=== PATIENT | male | born 1975 | race Caucasian/White ===

== ENCOUNTER 2016-10-30 00:19 | Emergency (ER) | payer BC ==
[~2016-10-30] VITALS: Ht 177.8 cm; Wt 114.3 kg
[2016-10-30] MEDS ORDERED: PAROXETINE HCL20 MG PO (00:37)
[2016-10-30] MEDS ORDERED: AMLODIPINE BESYL5 MG PO (00:37)
[2016-10-30] MEDS ORDERED: LOSARTAN POTASS50 MG PO (00:38)
[2016-10-30] MEDS ORDERED: ADVAIR 250-501 EACH INH (00:39)
== END 2016-10-30 00:57 | disposition home or self-care (01) ==
LOC: ED 00:19
DX: Z53.21 Procedure and treatment not carried out due to patient leaving prior to being seen by health care provider (principal)

== ENCOUNTER 2017-03-25 23:58 | Emergency (ER) | payer BC ==
[~2017-03-25] VITALS: Ht 177.8 cm; Wt 113.4 kg
[~2017-03-25 23:58] MED LIST: ADVAIR 250-501 EACH INH; AMLODIPINE BESYL5 MG PO; LOSARTAN POTASS50 MG PO; PAROXETINE HCL20 MG PO
[2017-03-26] MEDS ORDERED: LEXAPRO10 MG PO (00:15)
[2017-03-26] MEDS ORDERED: LOSARTAN-HCTZ1 EACH PO (00:16)
[2017-03-26] MEDS ORDERED: STRATTERA80 MG PO (00:16)
[2017-03-26] MEDS ORDERED: PANTOPRAZOLE SO40 MG PO (00:17)
[2017-03-26] MEDS ORDERED: VENTOLIN HFA18 GM INH (00:18)
[2017-03-26] MEDS ORDERED: MELOXICAM7.5 MG PO (00:18)
[2017-03-26] MEDS ORDERED: ZYRTEC10 MG PO (00:19)
== END 2017-03-26 01:54 | disposition home or self-care (01) ==
LOC: ED 23:58
DX: A08.4 Viral intestinal infection, unspecified (principal); I10 Essential (primary) hypertension; K21.9 Gastro-esophageal reflux disease without esophagitis; Z79.899 Other long term (current) drug therapy
CPT/HCPCS: 80053; 81001; 83690; 85025; 96361; 96374; 96375; 99283; J2405; J7030

== ENCOUNTER 2019-12-18 20:15 | Emergency (ER) | payer BC ==
[~2019-12-18] VITALS: Ht 177.8 cm; Wt 113.4 kg
--- OUTSIDE RECORDS SUMMARY | ~2019-12-18 | XMS | Clinical Summary ---
Demographics + + + | Address | [address] | | | [place] [address] | + + + | Home Phone | | + + + | Preferred Language | Unknown | + + + | Marital Status | | + + + | Druze Affiliation | Unknown | + + + | Race | White | + + + | Ethnic Group | Not or | + + + Author + + + | Author | [facility] | | | and [place] | + + + | Organization | [facility] | | | and [place] | + + + | Address | Unknown | + + + | Phone | Unavailable | + + + Support + + +---------+ + | Name | Relationship | Address | Phone | + + +---------+ + | Holly Avila | ECON | Unknown | | + + +---------+ + Care Team Providers + +------+ + | Care Garage Door Installer Name | Role | Phone | + +------+ + | Dimitrios Still DO | PCP | | + +------+ + Allergies Not on File Medications Not on file Active Problems Not on file Family History + + +------+ + | Medical History | Relation | Name | Comments | + + +------+ + | Alzheimer's disease | Other | | Grandfather | + + +------+ + | Hypertension | Other | | Grandmother | + + +------+ + | Stroke | Other | | Grandmother | + + +------+ + | Multiple sclerosis | Sister | | | + + +------+ + + +------+ + + | Relation | Name | Status | Comments | + +------+ + + | Other | | | | + +------+ + + | Sister | | | MS | | | | (Age | | | | | 43) | | + +------+ + + | Sister | | | | + +------+ + + Social History + +-------+ +--------+------+ | Tobacco Use | Types | Packs/Day | Years | Date | | | | | Used | | + +-------+ +--------+------+ | Never Smoker | | | | | + +-------+ +--------+------+ + + + | Sex Assigned at | Date Recorded | | | | + + + | Not on file | | + + + Last Filed Vital Signs Not on file Plan of Treatment + + +-------+ + | Health Maintenance | Due Date | Last | Comments | | | | Done | | + + +-------+ + | Vaccine: | | | | | Dtap/Tdap/Td (1 - | 7 | | | | Tdap) | | | | + + +-------+ + | Vaccine: Influenza | | | | | (#1) | 0 | | | + + +-------+ + Results Not on filefrom Last 3 Months"
--- OUTSIDE RECORDS SUMMARY | ~2019-12-18 | XMS | Encounter Summary ---
Demographics + + + | Address | [address] | | | [place] [address] | + + + | Home Phone | | + + + | Preferred Language | Unknown | + + + | Marital Status | | + + + | Mormon Affiliation | Unknown | + + + | Race | White | + + + | Ethnic Group | Not or | + + + Author + + + | Author | [facility] | | | and [place] | + + + | Organization | [facility] | | | and [place] | + + + | Address | Unknown | + + + | Phone | Unavailable | + + + Support + + +---------+ + | Name | Relationship | Address | Phone | + + +---------+ + | Holly Austin | ECON | Unknown | | + + +---------+ + Care Team Providers + +------+ + | Care Dip Brazier Name | Role | Phone | + +------+ + | Dimitrios Still DO | PCP | | + +------+ + Encounter Details +--------+ + + + + | Date | Type | Department | Care Team | Description | +--------+ + + + + | 06/20/ | Orders Only | [facility] | Talat Scherer, | | | 2014 | | CARDIOLOGY SARTHAK | MD [address] | | | | | [address] | [place] [address] | | | | | [address] | [phone] | | | | | [place], [place] | | | | | | [address] | | | | | | [phone] | | | +--------+ + + + + Social History + +-------+ +--------+------+ | Tobacco Use | Types | Packs/Day | Years | Date | | | | | Used | | + +-------+ +--------+------+ | Never Assessed | | | | | + +-------+ +--------+------+ + + + | Sex Assigned at | Date Recorded | | | | + + + | Not on file | | + + + documented as of this encounter Plan of Treatment Not on filedocumented as of this encounter Procedures + +--------+ + + + | Procedure Name | Priori | Date/Time | Associated Diagnosis | Comments | | | ty | | | | + +--------+ + + + | NM MYOCARDIAL | Routin | 06/20/2014 | | Results for this | | PERFUSION MULT SPECT | e | 11:50 AM | | procedure are in the | | | | PST | | results section. | + +--------+ + + + documented in this encounter Results NM Myocardial Perfusion Mult SPECT (06/20/2014 11:50 AM PST) + + | Specimen | + + | | + + + + + | Narrative | Performed At | + + + | [facility] Nuclear Lexiscan Stress Test | | | INDICATION FOR TEST: Palpitations, Syncope RISK FACTORS: | | | hypertension, stress PROCEDURE: 10.2 mCi of Tc-99m Myoview was | | | given intravenously for rest images. The patient received 0.4 mg of | | | Lexiscan intravenously. At 35 seconds 31.7 mCi of Tc-99m Myoview was | | | given intravenously for stress images. Symptoms shortness of breath, | | | dizziness . Effective Dose Equivalent: 14.4 mSv. REST DATA: Heart | | | rate 81 bpm. BP: 154/101. ECG: Normal sinus rhythm rate 91. Poor R | | | wave progression. STRESS DATA: Peak heart rate 120 , Peak BP: | | | 157/91. ECG: No arrhythmias. No ischemia. EJECTION FRACTION: Rest | | | EF: 52% Stress EF: 57% IMAGING: The quality images are good. No | | | artifacts are seen. Images show no significant rest and stress | | | perfusion abnormality. Gated images show normal wall motion and normal | | | systolic thickening. Post stress ejection fraction 57%. | | | IMPRESSIONS: Uneventful chemical stress infusion No significant rest | | | stress perfusion abnormality Normal LV systolic function No | | | comparison studies available Talat Scherer MD, FACC, FACP, | | | FASNC | | | 4:53 PM | | + + + + + | Procedure Note | + + | Allan Lock Conversion - 12/17/2018 11:42 PM [facility] | Lexiscan Stress Test INDICATION FOR TEST: Palpitations, Syncope RISK FACTORS: | | hypertension, stress PROCEDURE: 10.2 mCi of Tc-99m Myoview was given intravenously for | | rest images. The patient received 0.4 mg of Lexiscan intravenously. At 35 seconds 31.7 | | mCi of Tc-99m Myoview was given intravenously for stress images. Symptoms shortness of | | breath, dizziness . Effective Dose Equivalent: 14.4 mSv. REST DATA: Heart rate 81 bpm. | | BP: 154/101. ECG: Normal sinus rhythm rate 91. Poor R wave progression. STRESS DATA: | | Peak heart rate 120 , Peak BP: 157/91. ECG: No arrhythmias. No ischemia. EJECTION | | FRACTION: Rest EF: 52% Stress EF: 57% IMAGING:The quality images are good. No artifacts | | are seen. Images show no significant rest and stress perfusion abnormality. Gated images | | show normal wall motion and normal systolic thickening. Post stress ejection fraction | | 57%. IMPRESSIONS:Uneventful chemical stress infusionNo significant rest stress perfusion | | abnormalityNormal LV systolic functionNo comparison studies available Talat Scherer, | | ROSI PHILIP, SHANON, FELICE | | | |EJECTION FRACTION: Rest EF: 52% Stress EF: 57% | | | |IMAGING: | |The quality images are good. No artifacts are seen. Images show no significant rest and str ess perfusion abnormality. Gated images show normal wall motion and normal systolic thickeni ng. Post stress ejection fraction 57%. | | | |IMPRESSIONS: | |Uneventful chemical stress infusion | |No significant rest stress perfusion abnormality | |Normal LV systolic function | |No comparison studies available | | | |Talat Scherer MD, ROSI, SHANON, FELICE | | | | | + + documented in this encounter Visit Diagnoses Not on filedocumented in this encounter"
--- OUTSIDE RECORDS SUMMARY | ~2019-12-18 | XMS | Encounter Summary ---
Demographics + + + | Address | [address] | | | [place] [address] | + + + | Home Phone | | + + + | Preferred Language | Unknown | + + + | Marital Status | | + + + | Hoahaoism Affiliation | Unknown | + + + | Race | White | + + + | Ethnic Group | Not or | + + + Author + + + | Author | [facility] | | | and [place] | + + + | Organization | [facility] | | | [...] Team Providers + +------+ + | Care Straightening Machine Feeder Name | Role | Phone | + +------+ + PCP | Unavailable | + +------+ + Encounter Details +--------+ + + + + | Date | Type | Department | Care Team | Description | +--------+ + + + + | 04/09/ | [facility] | [facility] | Conversion | Disturbance of skin | | 2011 | Encounter | [facility] | Transaction, | sensation; Weakness | | | | [address] | Provider Unknown | | | | | [place] | [phone] | | | | | [address] | | | | | | [phone] | | | +--------+ + + + [...] | + +--------+ + + + | MRI CERVICAL SPINE W | Routin | 04/09/2012 | | Results for this | | WO CONTRAST | e | 6:43 PM | | procedure are in the | | | | PST | | results section. | + +--------+ + + + documented in this encounter Results MRI Cervical Spine w wo Contrast (04/09/2012 6:43 PM PST) + + | Specimen | + + | | + + + + + | Narrative | Performed At | + + + | [facility] CERVICAL SPINE W WO CONTRAST 04/09/2012 5:11 PM | | | HISTORY: 36 years. Male. Disturbance of skin sensation. | | | Weakness. ICD-9 code 782.0, 780.79. TECHNIQUE: Imaging was | | | performed on a 1.5 [place] MRI system. Multiplanar sequences were | | | acquired according to a standard department protocol with and without | | | contrast. Contrast: MultiHance. Dose: 21 mL. A single dose of | | | contrast was used for this study as well as a concurrent MRI | | | examination of the brain. COMPARISON: None. FINDINGS: | | | Imaging in the sagittal plane was performed from the posterior fossa | | | through T3-4. The vertebral bodies are normal in height. Normal | | | alignment is noted at all levels. Normal bone marrow signal | | | intensity is seen on all sequences. Prior surgical changes: None. | | | The visualized structures in the posterior fossa demonstrate | | | normal morphology and signal intensity. The flow voids of the | | | vertebral and basilar arteries are normal. The clivus is normal. | | | The pituitary is normal. The paraspinal soft tissues are normal. | | | The structures in the nasopharynx and neck appear grossly normal | | | with no mass or adenopathy seen. The thyroid appears normal. The | | | anterior longitudinal ligament, posterior longitudinal ligament, | | | ligamentum flavum and intraspinous ligaments are normal. The | | | foramen magnum is widely patent. There is no evidence of an | | | Arnold-Chiari malformation. The cervical and visualized upper | | | thoracic cord is normal in signal intensity and morphology. No | | | syrinx or hydromyelia is noted. Following contrast administration | | | no abnormal enhancement is seen within the vertebral bodies, disk | | | spaces, epidural space, spinal cord or paraspinal soft tissues. | | | The facet joints are normal at all observed levels. Occipital | | | atlantal joints: Normal. Atlantoaxial joints: Normal. C2-3: | | | The disk is normal in height and signal intensity and has a normal | | | posterior contour. The canal and neuroforamina are patent. C3-4: | | | The disk is normal in height and signal intensity and has a normal | | | posterior contour. The canal and neuroforamina are patent. C4-5: | | | The disk is normal in height and signal intensity. A small central | | | disk bulge is noted which abuts the anterior cord without causing | | | indentation. The canal and neural foramina are otherwise widely | | | patent. C5-6: Mild disk space narrowing. The posterior contour | | | of the disk shows a 1.6-mm left central disk protrusion which indents | | | the thecal sac and slightly indents the anterior cord. The canal and | | | neural foramina are otherwise widely patent patent. C6-7: The | | | disk is normal in height. A 3.4 mm central disk protrusion is seen | | | which indents the thecal sac and abuts the anterior cord causing a | | | minimal degree of indentation. The canal and neural foramina are | | | otherwise widely patent. C7-T1: The disk is normal in height and | | | signal intensity and has a normal posterior contour. The canal and | | | neuroforamina are patent. At T1-2 and below the disks are normal | | | in height and signal intensity and have normal posterior contours. | | | The canal and neuroforamina are patent at these levels. | | | IMPRESSION: 1. Central disk protrusion at C6-7 slightly indents the | | | anterior cord without causing canal stenosis. 2. Left central disk | | | protrusion at C5-6 slightly indents the anterior left side of the | | | cord without causing canal stenosis. 3. Central disk bulge at C4-5 | | | abuts but does not indent the cord. 4. Neuroforamina are widely | | | patent at all levels. 5. Cervical spinal cord is normal in signal | | | intensity. Electronically signed by Cesar Zimmerman DO on | | | 04/10/2012 9:02 AM | | + + + + + | Procedure Note | + + | Ashvin, Rad Conversion - 12/19/2018 4:18 AM PDT [facility] W WO | | [place]59/13/2012 5:11 PM HISTORY:36 years. Male. Disturbance of skin sensation. | | Weakness. ICD-9 code 782.0, 780.79. TECHNIQUE:Imaging was performed on a 1.5 [place] MRI | | system. Multiplanar sequences were acquired according to a standard department protocol | | with and without contrast.Contrast: MultiHance. Dose: 21 mL. A single dose of | | contrast was used for this study as well as a concurrent MRI examination of the brain. | | COMPARISON:None. FINDINGS:Imaging in the sagittal plane was performed from the posterior | | fossa through T3-4. The vertebral bodies are normal in height. Normal alignment is | | noted at all levels. Normal bone marrow signal intensity is seen on all sequences. | | Prior surgical changes: None. The visualized structures in the posterior fossa | | demonstrate normal morphology and signal intensity. The flow voids of the vertebral and | | basilar arteries are normal. The clivus is normal. The pituitary is normal. The | | paraspinal soft tissues are normal. The structures in the nasopharynx and neck appear | | grossly normal with no mass or adenopathy seen. The thyroid appears normal. The | | anterior longitudinal ligament, posterior longitudinal ligament, ligamentum flavum and | | intraspinous ligaments are normal. The foramen magnum is widely patent. There is no | | evidence of an Arnold-Chiari malformation. The cervical and visualized upper thoracic | | cord is normal in signal intensity and morphology. No syrinx or hydromyelia is noted. | | Following contrast administration no abnormal enhancement is seen within the vertebral | | bodies, disk spaces, epidural space, spinal cord or paraspinal soft tissues. The facet | | joints are normal at all observed levels. Occipital atlantal joints: Normal. | | Atlantoaxial joints: Normal. C2-3: The disk is normal in height and signal intensity and | | has a normal posterior contour. The canal and neuroforamina are patent. C3-4: The disk | | is normal in height and signal intensity and has a normal posterior contour. The canal | | and neuroforamina are patent. C4-5: The disk is normal in height and signal intensity. | | A small central disk bulge is noted which abuts the anterior cord without causing | | indentation. The canal and neural foramina are otherwise widely patent. C5-6: Mild disk | | space narrowing. The posterior contour of the disk shows a 1.6-mm left central disk | | protrusion which indents the thecal sac and slightly indents the anterior cord. The | | canal and neural foramina are otherwise widely patent patent. C6-7: The disk is normal | | in height. A 3.4 mm central disk protrusion is seen which indents the thecal sac and | | abuts the anterior cord causing a minimal degree of indentation. The canal and neural | | foramina are otherwise widely patent. C7-T1: The disk is normal in height and signal | | intensity and has a normal posterior contour. The canal and neuroforamina are patent. | | At T1-2 and below the disks are normal in height and signal intensity and have normal | | posterior contours. The canal and neuroforamina are patent at these levels. | | IMPRESSION:1. Central disk protrusion at C6-7 slightly indents the anterior cord | | without causing canal stenosis.2. Left central disk protrusion at C5-6 slightly indents | | the anterior left side of the cord without causing canal stenosis.3. Central disk | | bulge at C4-5 abuts but does not indent the cord.4. Neuroforamina are widely patent at | | all levels.5. Cervical spinal cord is normal in signal intensity. | |C4-5: The disk is normal in height and signal intensity. A small central disk bulge is not ed which abuts the anterior cord without causing indentation. The canal and neural foramina are otherwise widely patent. | | | |C5-6: Mild disk space narrowing. The posterior contour of the disk shows a 1.6-mm left shaun tral disk protrusion which indents the thecal sac and slightly indents the anterior cord. T he canal and neural foramina are otherwise widely patent patent. | | | |C6-7: The disk is normal in height. A 3.4 mm central disk protrusion is seen which indents the thecal sac and abuts the anterior cord causing a minimal degree of indentation. The ca nal and neural foramina are otherwise widely patent. | | | |C7-T1: The disk is normal in height and signal intensity and has a normal posterior contour . The canal and neuroforamina are patent. | | | |At T1-2 and below the disks are normal in height and signal intensity and have normal poste rior contours. The canal and neuroforamina are patent at these levels. | | | |IMPRESSION: | |1. Central disk protrusion at C6-7 slightly indents the anterior cord without causing becky l stenosis. | |2. Left central disk protrusion at C5-6 slightly indents the anterior left side of the cor d without causing canal stenosis. | |3. Central disk bulge at C4-5 abuts but does not indent the cord. | |4. Neuroforamina are widely patent at all levels. | |5. Cervical spinal cord is normal in signal intensity. | | | | | + + documented in this encounter Visit Diagnoses + + | Diagnosis | + + | Disturbance of skin sensation | + + | Weakness Other malaise and fatigue | + + documented in this encounter"
--- OUTSIDE RECORDS SUMMARY | ~2019-12-18 | XMS | Encounter Summary ---
Demographics + + + | Address | [address] | | | [place] [address] | + + + | Home Phone | | + + + | Preferred Language | Unknown | + + + | Marital Status | | + + + | Jew Affiliation | Unknown | + + + | Race | White | + + + | Ethnic Group | Not or | + + + Author + + + | Author | [facility] | | | and [place] | + + + | Organization | [facility] | | | and [place] | + + + | Address | Unknown | + + + | Phone | Unavailable | + + + Support + + +---------+ + | Name | Relationship | Address | Phone | + + +---------+ + | Holly Cumminshel | ECON | Unknown | | + + +---------+ + Care Team Providers + +------+ + | Care Water Commissioner Name | Role | Phone | + +------+ + | Dimitrios Still DO | PCP | | + +------+ + Encounter Details +--------+ + + + + | Date | Type | Department | Care Team | Description | +--------+ + + + + | 06/20/ | Orders Only | [facility] | Talat Scherer, | | | 2015 | | CARDIOLOGY [place] | [address] | | | | | ECHO [address] | [place] [address] | | | | | [place], [place] | [phone] | | | | | [address] | | | | | | [phone] | | | +--------+ + + + [...] | + +--------+ + + + | ECHO COMPLETE | Routin | 06/20/2014 | | Results for this | | | e | 9:27 AM | | procedure are in the | | | | PST | | results section. | + +--------+ + + + documented in this encounter Results ECHO Complete (06/20/2014 9:27 AM PST) + + | Specimen | + + | | + + + + + | Impressions | Performed At | + + + | 1. Overall left ventricular systolic function is normal with, an EF | | | between 60 - 65 %. | | + + + + + + | Narrative | Performed At | + + + | Patient Name: GILLES AVILA Date of : 1975 | | | Performing Physician: Talat Scherer MD, | | | FACC, FACP, FASNC | | | | | | INDICATIONS Palpitations, dizziness CONCLUSIONS | | | 1. Overall left ventricular systolic function is normal | | | with, an EF between 60 - 65 %. FINDINGS -------- ECG rhythm: | | | Sinus rhythm. Study: A 2-dimensional transthoracic echocardiogram | | | with m-mode, spectral and color flow Doppler was perfomed. Study: | | | This was a technically adequate study. Left Ventricle: Overall left | | | ventricular systolic function is normal with, an EF between 60 - 65 %. | | | Left Ventricle: The left ventricle cavity size is normal. Left | | | Ventricle: Left ventricular wall thickness is normal. Left Ventricle: | | | No regional wall motion abnormalities. Left Ventricle: The diastolic | | | filling pattern is normal for the age of the patient. Right | | | Ventricle: The right ventricle is normal in size and function. Left | | | Atrium: The left atrium is mildly enlarged. Right Atrium: The right | | | atrium is mildly enlarged Right Atrium: , and the RA measures 5.3cm. | | | Aortic Valve: The aortic valve is trileaflet and appears structurally | | | normal. Mitral Valve: The mitral valve is normal. Mitral Valve: | | | There is trivial mitral regurgitation. Tricuspid Valve: The tricuspid | | | valve was not well visualized. Tricuspid Valve: Pulmonary artery | | | systolic pressure could not be assessed due to the absence of adequate | | | TR jet. Pulmonic Valve: The pulmonic valve is normal. Pulmonic | | | Valve: Trace pulmonic regurgitation. Pericardium: There is no | | | pericardial effusion. IVC/Hepatic Veins: The IVC is normal size | | | (1.5-2.5cm) and collapses >50% with sniff, consistent with central | | | venous pressures of 5-10mmHg. Aorta: The aortic root, ascending aorta | | | and aortic arch are normal. Mass: No mass visualized Thrombus: No | | | clot visualized Thrombus: No vegetation visualized. Septum: No ASD | | | observed. Septum: No VSD observed. MEASUREMENTS | | | Ao asc: 3.31 cm IVC: 1.95 cm LA Major: 5.39 cm EDV(Teich): | | | 135.61 ml IVSd: 0.99 cm LVIDd: 5.30 cm LVPWd: 0.88 cm | | | LVOT Area: 3.48 cm2 LVOT Diam: 2.10 cm %FS: 37.93 % | | | EF(Teich): 67.64 % ESV(Teich): 43.88 ml LVIDs: 3.29 cm | | | SV(Teich): 91.73 ml RA Major: 5.26 cm RVIDd: 2.88 cm LVEF | | | MOD A2C: 59.96 % SV MOD A2C: 69.39 ml LVEF MOD A4C: 70.77 % | | | SV MOD A4C: 100.67 ml EF Biplane: 66.76 % LVEDV MOD BP: | | | 133.36 ml LVESV MOD BP: 44.32 ml LVEDV MOD A2C: 115.72 ml | | | LVLd A2C: 8.69 cm LVEDV MOD A4C: 142.24 ml LVLd A4C: 9.47 | | | cm LVESV MOD A2C: 46.32 ml LVLs A2C: 7.22 cm LVESV MOD A4C: | | | 41.57 ml LVLs A4C: 7.52 cm LAESV(A-L): 73.39 ml LAESV | | | Index (A-L): 32.19 ml/m2 LAAs A2C: 18.44 cm2 LAESV A-L A2C: | | | 56.11 ml LALs A2C: 5.14 cm LAAs A4C: 24.12 cm2 LAESV A-L | | | A4C: 87.73 ml LALs A4C: 5.63 cm Ao Diam: 3.39 cm LA Diam: | | | 4.37 cm LA/Ao: 1.28 AV maxP.14 mmHg AV meanP.31 | | | mmHg AV Vmax: 1.23 m/s AV Vmean: 0.85 m/s AV VTI: 25.22 | | | cm KIERAN Vmax: 2.58 cm2 KIERAN (VTI): 2.51 cm2 LVOT maxP.39 | | | mmHg LVOT meanP.76 mmHg LVSI Dopp: 27.85 ml/m2 LVSV | | | Dopp: 63.51 ml LVOT Vmax: 0.92 m/s LVOT Vmean: 0.61 m/s | | | LVOT VTI: 18.23 cm IVRT: 93.42 ms MV A Alfredo: 0.83 m/s MV | | | Dec Coal: 4.89 m/s2 MV DecT: 182.19 ms MV E Alfredo: 0.88 m/s | | | MV E/A Ratio: 1.09 MV PHT: 52.83 ms MVA By PHT: 4.16 cm2 | | | Septal e': 0.10 m/s Septal E/e': 8.13 Lateral e': 0.14 m/s | | | Lateral E/e': 6.14 RAP: 5 mmHg Chemical Treatment Plant Technician: [id number] | | | Authenticated by: Talat Scherer MD, FAC, FACP, [facility] Report | | | Date/Time: 06-22-2014 16:30:21 | | + + + + + | Procedure Note | + + | Allan Lock Conversion - 12/17/2018 11:42 PM PDT Patient Name: Jorge Luis AVILA of | | : 1975 Performing Physician: Talat Scherer MD, FACC, | | FACP, | | FASNC INDICATIONS--------- | | --Palpitations, dizziness CONCLUSIONS 1. Overall left ventricular systolic | | function is normal with, an EF between 60 - 65 %. FINDINGS--------ECG rhythm: Sinus | | rhythm.Study: A 2-dimensional transthoracic echocardiogram with m-mode, spectral and | | color flow Doppler was perfomed.Study: This was a technically adequate study.Left | | Ventricle: Overall left ventricular systolic function is normal with, an EF between 60 - | | 65 %.Left Ventricle: The left ventricle cavity size is normal.Left Ventricle: Left | | ventricular wall thickness is normal.Left Ventricle: No regional wall motion | | abnormalities.Left Ventricle: The diastolic filling pattern is normal for the age of the | | patient.Right Ventricle: The right ventricle is normal in size and function.Left | | Atrium: The left atrium is mildly enlarged.Right Atrium: The right atrium is mildly | | enlargedRight Atrium: , and the RA measures 5.3cm.Aortic Valve: The aortic valve is | | trileaflet and appears structurally normal.Mitral Valve: The mitral valve is | | normal.Mitral Valve: There is trivial mitral regurgitation.Tricuspid Valve: The | | tricuspid valve was not well visualized.Tricuspid Valve: Pulmonary artery systolic | | pressure could not be assessed due to the absence of adequate TR jet.Pulmonic Valve: The | | pulmonic valve is normal.Pulmonic Valve: Trace pulmonic regurgitation.Pericardium: | | There is no pericardial effusion.IVC/Hepatic Veins: The IVC is normal size (1.5-2.5cm) | | and collapses >50% with sniff, consistent with central venous pressures of | | 5-10mmHg.Aorta: The aortic root, ascending aorta and aortic arch are normal.Mass: No | | mass visualizedThrombus: No clot visualizedThrombus: No vegetation visualized.Septum: No | | ASD observed.Septum: No VSD observed. MEASUREMENTS Ao asc: 3.31 cmIVC: | | 1.95 cmLA Major: 5.39 cmEDV(Teich): 135.61 mlIVSd: 0.99 cmLVIDd: 5.30 cmLVPWd: | | 0.88 cmLVOT Area: 3.48 [id number] Diam: 2.10 cm%FS: 37.93 %EF(Teich): 67.64 | | %ESV(Teich): 43.88 mlLVIDs: 3.29 cmSV(Teich): 91.73 mlRA Major: 5.26 cmRVIDd: | | 2.88 cmLVEF MOD A2C: 59.96 %SV MOD A2C: 69.39 mlLVEF MOD A4C: 70.77 %SV MOD A4C: | | 100.67 mlEF Biplane: 66.76 %LVEDV MOD BP: 133.36 mlLVESV MOD BP: 44.32 mlLVEDV | | MOD A2C: 115.72 mlLVLd A2C: 8.69 cmLVEDV MOD A4C: 142.24 mlLVLd A4C: 9.47 | | cmLVESV MOD A2C: 46.32 mlLVLs A2C: 7.22 cmLVESV MOD A4C: 41.57 mlLVLs A4C: 7.52 | | cmLAESV(A-L): 73.39 mlLAESV Index (A-L): 32.19 ml/m2LAAs A2C: 18.44 [id number] A-L | | A2C: 56.11 mlLALs A2C: 5.14 cmLAAs A4C: 24.12 [id number] A-L A4C: 87.73 mlLALs | | A4C: 5.63 cmAo Diam: 3.39 cmLA Diam: 4.37 cmLA/Ao: 1.28AV maxP.14 mmHgAV | | meanP.31 mmHgAV Vmax: 1.23 m/Jesse Vmean: 0.85 m/Jesse VTI: 25.22 cmAVA Vmax: | | 2.58 cm2AVA (VTI): 2.51 [id number] maxP.39 mmHgLVOT meanP.76 mmHgLVSI Dopp: | | 27.85 ml/m2LVSV Dopp: 63.51 mlLVOT Vmax: 0.92 m/sLVOT Vmean: 0.61 m/sLVOT VTI: | | 18.23 cmIVRT: 93.42 msMV A Alfredo: 0.83 m/sMV Dec Coal: 4.89 m/s2MV DecT: 182.19 | | msMV E Alfredo: 0.88 m/sMV E/A Ratio: 1.09MV PHT: 52.83 msMVA By PHT: 4.16 [id number] | | e': 0.10 m/sSeptal E/e': 8.13Lateral e': 0.14 m/sLateral E/e': 6.14RAP: 5 | | mmHg Chemical Treatment Plant Technician: DHAuthenticated by: Talat Scherer MD, FACC, FACP, FASNCReport | | Date/Time: 06-22-2014 16:30:21 IMPRESSION: 1. Overall left ventricular systolic function | | is normal with, an EF between 60 - 65 %. | |Septum: No VSD observed. | | | |MEASUREMENTS | | | |Ao asc: 3.31 cm | |IVC: 1.95 cm | |LA Major: 5.39 cm | |EDV(Teich): 135.61 ml | |IVSd: 0.99 cm | |LVIDd: 5.30 cm | |LVPWd: 0.88 cm | |LVOT Area: 3.48 cm2 | |LVOT Diam: 2.10 cm | |%FS: 37.93 % | |EF(Teich): 67.64 % | |ESV(Teich): 43.88 ml | |LVIDs: 3.29 cm | |SV(Teich): 91.73 ml | |RA Major: 5.26 cm | |RVIDd: 2.88 cm | |LVEF MOD A2C: 59.96 % | |SV MOD A2C: 69.39 ml | |LVEF MOD A4C: 70.77 % | |SV MOD A4C: 100.67 ml | |EF Biplane: 66.76 % | |LVEDV MOD BP: 133.36 ml | |LVESV MOD BP: 44.32 ml | |LVEDV MOD A2C: 115.72 ml | |LVLd A2C: 8.69 cm | |LVEDV MOD A4C: 142.24 ml | |LVLd A4C: 9.47 cm | |LVESV MOD A2C: 46.32 ml | |LVLs A2C: 7.22 cm | |LVESV MOD A4C: 41.57 ml | |LVLs A4C: 7.52 cm | |LAESV(A-L): 73.39 ml | |LAESV Index (A-L): 32.19 ml/m2 | |LAAs A2C: 18.44 cm2 | |LAESV A-L A2C: 56.11 ml | |LALs A2C: 5.14 cm | |LAAs A4C: 24.12 cm2 | |LAESV A-L A4C: 87.73 ml | |LALs A4C: 5.63 cm | |Ao Diam: 3.39 cm | |LA Diam: 4.37 cm | |LA/Ao: 1.28 | |AV maxP.14 mmHg | |AV meanP.31 mmHg | |AV Vmax: 1.23 m/s | |AV Vmean: 0.85 m/s | |AV VTI: 25.22 cm | |KIERAN Vmax: 2.58 cm2 | |KIERAN (VTI): 2.51 cm2 | |LVOT maxP.39 mmHg | |LVOT meanP.76 mmHg | |LVSI Dopp: 27.85 ml/m2 | |LVSV Dopp: 63.51 ml | |LVOT Vmax: 0.92 m/s | |LVOT Vmean: 0.61 m/s | |LVOT VTI: 18.23 cm | |IVRT: 93.42 ms | |MV A Alfredo: 0.83 m/s | |MV Dec Coal: 4.89 m/s2 | |MV DecT: 182.19 ms | |MV E Alfredo: 0.88 m/s | |MV E/A Ratio: 1.09 | |MV PHT: 52.83 ms | |MVA By PHT: 4.16 cm2 | |Septal e': 0.10 m/s | |Septal E/e': 8.13 | |Lateral e': 0.14 m/s | |Lateral E/e': 6.14 | |RAP: 5 mmHg | | | |Chemical Treatment Plant Technician: | |Authenticated by: Talat Scherer MD, FACC, FACP, [facility] | |Report Date/Time: 06-22-2014 16:30:21 | | | |IMPRESSION: | |1. Overall left ventricular systolic function is normal with, an EF between 60 - 65 %. | + + documented in this encounter Visit Diagnoses Not on filedocumented in this encounter"
--- OUTSIDE RECORDS SUMMARY | ~2019-12-18 | XMS | Encounter Summary ---
Demographics + + + | Address | [address] | | | [place] [address] | + + + | Home Phone | | + + + | Preferred Language | Unknown | + + + | Marital Status | | + + + | Advent Affiliation | Unknown | + + + | Race | White | + + + | Ethnic Group | Not or | + + + Author + + + | Author | [facility] | | | and [place] | + + + | Organization | [facility] | | | and [...] Team Providers + +------+ + | Care Chief Ii Dispatcher Name | Role | Phone | + +------+ + PCP | Unavailable | + +------+ + Encounter Details +--------+ + + + + | Date | Type | Department | Care Team | Description | +--------+ + + + + | 04/09/ | [facility] | [facility] | Conversion | Disturbance of skin | | 2011 | Encounter | [facility] | Transaction, | sensation | | | | [address] | Provider Unknown | | | | | [place] | [phone] | | | | | [address] | | | | | | [phone] | | | +--------+ + + + [...] + +--------+ + + + | MRI BRAIN W WO | Routin | 04/09/2012 | | Results for this | | CONTRAST | e | 6:42 PM | | procedure are in the | | | | PST | | results section. | + +--------+ + + + documented in this encounter Results MRI Brain w wo Contrast (04/09/2012 6:42 PM PST) + + | Specimen | + + | | + + + + + | Narrative | Performed At | + + + | [facility] MRI BRAIN W WO CONTRAST 04/09/2012 5:11 PM | | | HISTORY: 36 years. Male. Disturbance of skin sensation. | | | Weakness. ICD-9 code 782.0, 780.79. TECHNIQUE: Imaging was | | | performed on a 1.5 [place] MRI system. Multiplanar sequences were | | | acquired according to a standard department protocol with and without | | | contrast. Contrast: MultiHance. Dose: 21 mL. COMPARISON: None. | | | FINDINGS: Two small cysts are noted one each along the superior | | | aspects of the cerebellar hemispheres on the axial images these | | | measure 1.7 x 5.5 mm on the right and 3.8 x 6.5 mm on the left. 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 Chronic | | | lacunar-type infarcts are felt to be less likely but would remain | | | within the differential diagnosis. The DWI sequence shows no | | | evidence of acute ischemia or infarct. The T2* GRE sequence does not | | | show low signal material to suggest microhemorrhage or | | | calcification within the brain parenchyma. Following contrast | | | administration, no abnormal enhancement is seen within the brain | | | parenchyma, leptomeninges or dura. No lesions are seen in the | | | supratentorial or infratentorial white matter to suggest multiple | | | sclerosis. The brain parenchyma otherwise demonstrates normal | | | morphology and signal intensity on all sequences. The ventricles, | | | cisterns and sulci are normal in size and configuration. No extraaxial | | | fluid collections are noted. The midline structures including the | | | corpus callosum, porfirio, cerebellar vermis, pineal gland and pituitary | | | are normal. No masses are seen in the region of the | | | cerebellopontine angles or internal auditory canals. The orbits and | | | their contents are normal. The paranasal sinuses are well aerated. | | | No air-fluid levels or mucosal thickening is noted. No fluid seen | | | in the mastoids. The osseous structures of the calvaria and upper | | | cervical spine demonstrate normal bone marrow signal intensity. The | | | soft tissues of the oropharynx and upper neck appear normal on the | | | sagittal sequences. The intracranial arteries demonstrate normal | | | flow voids on the T2 sequence. No large aneurysm is noted. The | | | dural venous sinuses also demonstrate normal flow-voids. | | | IMPRESSION: 1. No acute intracranial findings. 2. Two tiny cysts | | | seen in the superior margins of the cerebellar hemispheres, one on | | | the left and one on the right. These show no evidence of enhancement | | | or surrounding gliosis. 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 They are unlikely to be of any acute clinical concern. 3. | | | No evidence of multiple sclerosis. | | + + + + + | Procedure Note | + + | Allan Lock Conversion - 12/19/2018 4:18 AM PDT GILLES KIRKPATRICK BRAIN W WO | | [id number]/13/2012 5:11 PM HISTORY:36 years. Male. Disturbance of skin sensation. | | Weakness. ICD-9 code 782.0, 780.79. TECHNIQUE:Imaging was performed on a 1.5 [employer] MRI | | system. Multiplanar sequences were acquired according to a standard department protocol | | with and without contrast.Contrast: MultiHance. Dose: 21 mL. COMPARISON:None. | | FINDINGS:Two small cysts are noted one each along the superior aspects of the cerebellar | | hemispheres on the axial images these measure 1.7 x 5.5 mm on the right and 3.8 x 6.5 | | mm on the left. 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 Chronic | | lacunar-type infarcts are felt to be less likely but would remain within the | | differential diagnosis. The DWI sequence shows no evidence of acute ischemia or | | infarct. The T2* GRE sequence does not show low signal material to suggest | | microhemorrhage or calcification within the brain parenchyma. Following contrast | | administration, no abnormal enhancement is seen within the brain parenchyma, | | leptomeninges or dura. No lesions are seen in the supratentorial or infratentorial | | white matter to suggest multiple sclerosis. The brain parenchyma otherwise demonstrates | | normal morphology and signal intensity on all sequences. The ventricles, cisterns and | | sulci are normal in size and configuration. No extraaxial fluid collections are noted. | | The midline structures including the corpus callosum, porfirio, cerebellar vermis, pineal | | gland and pituitary are normal. No masses are seen in the region of the cerebellopontine | | angles or internal auditory canals. The orbits and their contents are normal. The | | paranasal sinuses are well aerated. No air-fluid levels or mucosal thickening is noted. | | No fluid seen in the mastoids. The osseous structures of the calvaria and upper | | cervical spine demonstrate normal bone marrow signal intensity. The soft tissues of the | | oropharynx and upper neck appear normal on the sagittal sequences. The intracranial | | arteries demonstrate normal flow voids on the T2 sequence. No large aneurysm is noted. | | The dural venous sinuses also demonstrate normal flow-voids. IMPRESSION:1. No acute | | intracranial findings.2. Two tiny cysts seen in the superior margins of the cerebellar | | hemispheres, one on the left and one on the right. These show no evidence of | | enhancement or surrounding gliosis. 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 | | They are unlikely to be of any acute clinical concern.3. No evidence of multiple | | sclerosis. | |neuroglial cysts. They are unlikely to be | | of any acute clinical concern. | |3. No evidence of multiple sclerosis. | | | | | + + documented in this encounter Visit Diagnoses + + | Diagnosis | + + | Disturbance of skin sensation | + + documented in this encounter"
[~2019-12-18 20:15] MED LIST changes: +LEXAPRO10 MG PO; +LOSARTAN-HCTZ1 EACH PO; +MELOXICAM7.5 MG PO; +PANTOPRAZOLE SO40 MG PO; +STRATTERA80 MG PO; +VENTOLIN HFA18 GM INH; +ZYRTEC10 MG PO
[2019-12-19] MEDS ORDERED: KEFLEX500 MG PO (01:34)
== END 2019-12-19 01:43 | disposition home or self-care (01) ==
LOC: ED 20:15
DX: L03.012 Cellulitis of left finger (principal); I10 Essential (primary) hypertension; F90.9 Attention-deficit hyperactivity disorder, unspecified type; F41.9 Anxiety disorder, unspecified; K21.9 Gastro-esophageal reflux disease without esophagitis; Z79.899 Other long term (current) drug therapy
CPT/HCPCS: 73140; 99283-25; A9270